=== PATIENT | female | born 1990 | race African-American/Black ===

== ENCOUNTER 2017-08-30 17:08 | Emergency (ER) | payer MEDICAID | END 2017-08-30 20:25 | disposition home or self-care (01) | LOC: D.ER 17:08 | DX: S16.1XXA Strain of muscle, fascia and tendon at neck level, initial encounter (principal); V43.52XA Car driver injured in collision with other type car in traffic accident, initial encounter; Y93.89 Activity, other specified; Y92.410 Unspecified street and highway as the place of occurrence of the external cause; S29.012A Strain of muscle and tendon of back wall of thorax, initial encounter; S39.012A Strain of muscle, fascia and tendon of lower back, initial encounter; M62.830 Muscle spasm of back ==